=== PATIENT | male | born 1965 | race Caucasian/White ===

== ENCOUNTER 2023-09-20 12:26 | Emergency (ER) | payer OTHER, SELFPAY ==
[2023-09-20 12:32] VITALS: BP 134/100; PULSE 67; RESP 16; TEMP 36.6; O2SAT 97; BMI 26.6
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
[2023-09-20 15:07] VITALS: BP 133/78; PULSE 90; RESP 18; TEMP 36.4; O2SAT 99
[2023-09-20] MEDS: KETOROLAC 30 MG/ML VIAL 15 MG IM (15:32)
== END 2023-09-20 15:46 | disposition home or self-care (01) ==
PROVIDERS: Emergency Provider Physician Assistant Medical; Family Provider Nurse Practitioner Gerontology; PCP Nurse Practitioner Gerontology
DX: M54.50 Low back pain, unspecified (principal)
CPT/HCPCS: 96372; 99283; J1885